=== PATIENT | female | born 1995 | race American Indian/Alaskan Native ===

== ENCOUNTER 2017-08-29 21:29 | Outpatient (CLI) | payer MEDICAID ==
[2017-08-29 21:46] VITALS: BP 126/67
[2017-08-29] MEDS ORDERED: LACTATED RINGERS 1,000 ML IV ONE ×2 (21:48→22:50)
[2017-08-29 22:16] LABS: Bacteria,Urine 1+ /HPF (Negative); Bilirubin,Urine NEG (Negative); Blood,Urine NEG (Negative); Ketones,Urine NEG (Negative); Leukocyte Esterase,Urine MOD (Negative); Mucus,Urine FEW /HPF; Nitrite,Urine NEG (Negative); Protein,Urine <15 mg/dL mg/dL (Negative); Urobilinogen,Urine < 2.0 mg/dL (<2.0)
[2017-08-29] MEDS ORDERED: BRETHINE SUB-Q ONE (22:38)
== END 2017-08-30 00:05 | disposition home or self-care (01) ==
LOC: TRG 21:29
PROVIDERS: ATTEND Obstetrics & Gynecology
DX: O47.03 False labor before 37 completed weeks of gestation, third trimester (principal); Z3A.33 33 weeks gestation of pregnancy
CPT/HCPCS: 36415; 81001; 82731; 96360; 96372; J3105; J7120

== ENCOUNTER 2017-09-27 00:41 | Outpatient (CLI) | payer MEDICAID ==
[2017-09-27 01:47] VITALS: BP 124/71
[2017-09-27] MEDS ORDERED: VISTARIL PO PRN (02:35)
[2017-09-27] MEDS ORDERED: VISTARIL PO ONE (02:35)
[2017-09-27] MEDS ORDERED: NARCAN 0.4 MG/1 ML IV PRN (02:47)
[2017-09-27] MEDS ORDERED: ZOFRAN IV PRN (02:47)
[2017-09-27] MEDS ORDERED: XYLOCAINE 2% INFILTRATI ONE (02:47)
[2017-09-27] MEDS ORDERED: SUBLIMAZE IV PRN (02:47)
[2017-09-27] MEDS ORDERED: BRETHINE SUB-Q PRN (02:47)
[2017-09-27] MEDS ORDERED: MINERAL OIL PO PRN (02:47)
[2017-09-27] MEDS ORDERED: STADOL IV PRN (02:47)
[2017-09-27] MEDS ORDERED: PHENERGAN PR PRN (02:47)
[2017-09-27] MEDS ORDERED: ePHEDrine SULFATE IV PRN (02:47)
[2017-09-27] MEDS ORDERED: BRETHINE IVP PRN (02:47)
--- NOTE | 2017-09-27 02:52 | Ultrasound Report ---
FINAL REPORT PROCEDURE: US OB FOLLOW UP TECHNIQUE: Real-time sonography performed for focused follow-up or re-evaluation of each size/growth parameters and amniotic fluid or re-evaluation of suspected or confirmed abnormality on prior imaging. CPT 05271 HISTORY: PT FELL ON 09/25/17 COMPARISON: No prior studies are available for comparison. FINDINGS: MATERNAL Uterus: Within normal limits . Cervix length: 2.2 cm. Internal Os: Closed . IUP: Single living intrauterine . Position: Cephalic. Placental position: Anterior, without previa . Amniotic fluid volume: Normal . Heart rate and rhythm: 147 BPM, Regular . anatomic survey: Not performed. MEASUREMENTS BPD: 8.46 centimeters correspond at 34 weeks and 1 day. HC: 32.29 centimeters correspond at 36 weeks and 3 days. AC: 29.42 centimeters correspond at 33 weeks and 3 days. FL: 7.19 centimeters correspond at 36 weeks and 6 days. Mean Gestational Age (composite criteria): 35 weeks and 2 days. Ratio biometry: Normal . Estimated Weight: 2512 grams. Interval growth: Appropriate . Estimated Due Date (earliest scan): 10/30/2017. IMPRESSION: 1. Single living intrauterine gestation at approximately 35 weeks and 2 days 2. EDC by US 10/30/2017.
--- NOTE | 2017-09-27 02:53 | Ultrasound Report ---
FINAL REPORT PROCEDURE: US OB FOLLOW UP TECHNIQUE: Real-time sonography performed for focused follow-up or re-evaluation of each size/growth parameters and amniotic fluid or re-evaluation of suspected or confirmed abnormality on prior imaging. CPT 58302 HISTORY: PT FELL ON 09/25/17 COMPARISON: No prior studies are available for comparison. FINDINGS: MATERNAL Uterus: Within normal limits . Cervix length: 2.2 cm. Internal Os: Closed . IUP: Single living intrauterine . Position: Cephalic. Placental position: Anterior, without previa . Amniotic fluid volume: Normal . Heart rate and rhythm: 147 BPM, Regular . anatomic survey: Not performed. MEASUREMENTS BPD: 8.46 centimeters correspond at 34 weeks and 1 day. HC: 32.29 centimeters correspond at 36 weeks and 3 days. AC: 29.42 centimeters correspond at 33 weeks and 3 days. FL: 7.19 centimeters correspond at 36 weeks and 6 days. Mean Gestational Age (composite criteria): 35 weeks and 2 days. Ratio biometry: Normal . Estimated Weight: 2512 grams. Interval growth: Appropriate . Estimated Due Date (earliest scan): 10/30/2017. biophysical profile: breathing movements: 2. movements: 2. posterior and tone: 2. Qualitative amniotic fluid volume: 2. Total score: 8/8. IMPRESSION: 1. Single living intrauterine gestation at approximately 35 weeks and 2 days 2. EDC by US 10/30/2017. 3. Normal biophysical profile.
[2017-09-27] MEDS ORDERED: PITOCin/NS 30 UNIT/500ML 30 UNITS/500 ML BAG IV SCH ×2 (03:00)
[2017-09-27] MEDS ORDERED: PITOCin/NS 20 UNIT/1000ML DRIP 20 UNITS/1,000 ML BAG IV SCH (03:00)
[2017-09-27] MEDS ORDERED: LACTATED RINGERS 1,000 ML IV SCH (03:00)
== END 2017-09-27 03:00 | disposition home or self-care (01) ==
LOC: TRG 00:41
PROVIDERS: ATTEND Obstetrics & Gynecology
DX: O47.03 False labor before 37 completed weeks of gestation, third trimester (principal); Z3A.35 35 weeks gestation of pregnancy
CPT/HCPCS: 59025; 76816; 76819; Q0177

== ENCOUNTER 2017-09-27 07:08 | Inpatient (IN) | payer MEDICAID ==
--- NOTE | 2017-09-27 07:36 | Procedure Note ---
OB Delivery Note - Delivery Date of Delivery: 09/27/17 Surgeon: PRATEEK MINER Estimated blood loss: <100cc - Vaginal Delivery presentation: vertex Delivery position: OA Intrapartum events: precipitous labor- <3hr Delivery induction: none Delivery monitor: external FHT, external uterine Route of delivery: Delivery placenta: spontaneous Delivery cord: 3 umbilical vessels Episiotomy: none Delivery laceration: none Anesthesia: none Delivery comments: Called to delivery for fully dilated patient about to deliver, provider not immediately available. Performed vaginal delivery over intact perineum, mother and fetus in stable condition. - Infant A at 1 minute: 8 at 5 minutes: 9 Infant Gender: Male (time of delivery is 7:21 AM, infant weight 5 lbs. 12 oz. or 2610 g)
[2017-09-27] MEDS ORDERED: LACTATED RINGERS 1,000 ML ONE (07:52)
[2017-09-27] MEDS ORDERED: PITOCin/NS 20 UNIT/1000ML DRIP 20,000 MILLIUNITS/1,000 ML BAG IV ONE (08:18)
--- NOTE | 2017-09-27 08:22 | History and Physical Report ---
History of Present Illness Date of examination: 09/27/17 Date of admission: 09/27/17 07:08 History of present illness: 22 yo EDC 10/13/17 @ 37.5 weeks gestation presented to L&D @ complete. viable male infant. records not available at time of delivery will request. Patient voiced received at [facility], [employer]. Last visit in office was yesterday. Records received and patient was a transfer into care at 31 weeks gestation. History of asthma and sickle cell trait with FOB being negative per patient. Treated for BV and Trich last week. She is GBS negative. Past History Past Medical History: asthma Past Surgical History: no surgical history [employer] History: trichomonas Family/Genetic History: none Social history: no significant social history - Obstetrical History Expected Date of Delivery: 10/13/17 Actual Gestation: 37 Week(s) 5 Day(s) : 2 Para: 1 Hx # Term Pregnancies: 1 Number of Living Children: 1 Medications and Allergies Allergies Allergy/AdvReac Type Severity Reaction Status Date / Time shrimp Allergy Severe Anaphylaxis Verified 08/29/17 21:46 Review of Systems All systems: negative - Vital Signs Vital signs: Vital Signs Temp Pulse Resp BP Pulse Ox 97.2 F L 80 20 123/74 100 09/27/17 07:10 09/27/17 07:10 09/27/17 07:10 09/27/17 07:10 09/27/17 07:10 Temp Pulse Resp BP Pulse Ox 97.2 F L 75 20 118/57 97 09/27/17 07:10 09/27/17 08:10 09/27/17 07:10 09/27/17 08:10 09/27/17 07:49 - Physical Exam Abdomen: Positive: other (ff@ U, ML) Vulva: both: normal Vagina: Positive: other (small lochia intacyt) Results All other labs normal. Assessment and Plan A: IUP at 37.4 weeks Precipitous viable male Routine PP orders
[2017-09-27] MEDS ORDERED: TYLENOL PO PRN (08:26)
[2017-09-27] MEDS ORDERED: DULCOLAX PR PRN (08:26)
[2017-09-27] MEDS ORDERED: BENADRYL PO PRN (08:26)
[2017-09-27] MEDS ORDERED: PHENERGAN PO PRN (08:26)
[2017-09-27] MEDS ORDERED: TUCKS PAD TP PRN (08:26)
[2017-09-27 08:35] LABS: Hematocrit 37.7 % (30.3-42.9); Hemoglobin 13.1 gm/dl (10.1-14.3); Mean Corpuscular HGB Conc 35 % (30-34); Mean Corpuscular Hemoglobin 31 pg (28-32); Mean Corpuscular Volume 89 fl (79-97); Platelet Count 184 K/mm3 (140-440); Red Blood Count 4.25 M/mm3 (3.65-5.03); Red Cell Distribution Width 12.8 % (13.2-15.2); White Blood Count 12.2 K/mm3 (4.5-11.0)
[2017-09-27] MEDS ORDERED: SODIUM CHLORIDE FLUSH SYRINGE 10 ML IV NR (09:00)
[2017-09-27] MEDS ORDERED: PITOCin/NS 20 UNIT/1000ML DRIP 20 UNITS/1,000 ML BAG IV SCH (09:00)
[2017-09-27] MEDS ORDERED: LACTATED RINGERS 1,000 ML IV SCH (09:00)
[2017-09-27] MEDS: MOTRIN PO SCH ×3 (10:15→22:27)
[2017-09-27] MEDS: NORCO 5/325 PO PRN ×2 (10:16→22:23)
[2017-09-27] MEDS: PRENATAL VITAMIN PO SCH (11:43)
[2017-09-27 21:01] LABS: Hematocrit 31.5 % (30.3-42.9); Hemoglobin 10.8 gm/dl (10.1-14.3)
[2017-09-28] MEDS: MOTRIN PO SCH ×2 (05:23→18:05)
[2017-09-28] MEDS ORDERED: BOOSTRIX IM ONE (06:00)
[2017-09-28] MEDS: PRENATAL VITAMIN PO SCH (08:41)
--- NOTE | 2017-09-28 15:45 | Progress Note ---
Assessment and Plan A: PPD#1 s/p at term P: Routine care. Anticipate discharge tomorrow. Subjective - Subjective Date of service: 09/28/17 Principal diagnosis: s/p at term Interval history: No overnight events Patient reports: appetite normal, voiding normally, pain well controlled, ambulating normally [place]: doing well Objective - Vital Signs Latest vital signs: Vital Signs Temp Pulse Resp BP BP Pulse Ox 09/28/17 09:35 97.8 F 79 20 96/64 09/28/17 00:30 98.6 F 77 16 114/71 09/27/17 22:27 18 09/27/17 22:23 18 09/27/17 20:00 98.6 F 71 16 114/78 09/27/17 16:43 99.1 F 90 22 106/65 98 - Exam Breasts: Present: deferred Cardiovascular: Present: Regular rate Lungs: Present: Clear to auscultation Abdomen: Present: soft Uterus: Present: fundal height below umbilicus Extremities: Present: normal
--- NOTE | 2017-09-28 15:46 | Discharge Summary ---
Providers - Providers Date of Admission: 09/27/17 07:08 Date of discharge: 09/29/17 Attending physician: AVA TORREZ MD Primary care physician: AVA TORREZ MD Hospitalization Reason for admission: active labor Delivery: Procedure details: Please see delivery note. Episiotomy: none Laceration: none Other procedures: none complications: none Discharge diagnosis: IUP at term delivered [place] baby: male Hospital course: Pt tolerated well. Her course was uncomplicated. She met discharge criteria on PPD#2. She will follow up in the office in 4 weeks. Condition at discharge: Stable Disposition: DC-01 TO HOME OR SELFCARE - Discharge Diagnoses (1) Term of male Status: Acute Plan - Discharge Medications Prescriptions: HYDROcodone/APAP 5-325 [[place] 5/325] 1 each PO Q6HR PRN #20 tablet PRN Reason: Pain Ibuprofen [Motrin] 600 mg PO Q6H PRN #30 tablet PRN Reason: Pain - Provider Discharge Summary Activity: routine, no sex for 6 weeks, no heavy lifting 4 weeks, no strenuous exercise Diet: routine Instructions: routine Additional instructions: [] Smoking cessation referral if applicable(refer to patient education folder for contact #) [] Refer to [facility] Call your doctor immediately for: * Fever > 100.5 * Heavy vaginal bleeding ( >1 pad per hour) * Severe persistent headache * Shortness of breath * Reddened, hot, painful area to leg or breast * Drainage or odor from incision. * Keep incision clean and dry at all times and follow doctor's instructions regarding bathing/showering Please schedule your son's circumcision before he is one month old. - Follow up plan Follow up: YESENIA ZHENG CNM [Advanced Practice Nurse] - 10/25/17 (Please schedule appt for your exam )
[2017-09-29] MEDS ORDERED: MOTRIN PO SCH
[2017-09-29 15:08] VITALS: BP 128/68
== END 2017-09-29 12:45 | disposition home or self-care (01) | DRG 775 ==
LOC: LD 07:08 → OB 09:42
PROVIDERS: ADMIT Obstetrics & Gynecology; ATTEND Obstetrics & Gynecology
PROC: 10E0XZZ Delivery of Products of Conception, External Approach (ICD-10-PCS; principal; 2017-09-27)
DX: O62.3 Precipitate labor (principal); Z3A.37 37 weeks gestation of pregnancy; Z37.0 Single live birth; O99.52 Diseases of the respiratory system complicating childbirth; J45.909 Unspecified asthma, uncomplicated
CPT/HCPCS: 36415; 85014; 85018; 85027; 86850; 86900; 86901; 90471; 99211; G0463; J2590; J7120

== ENCOUNTER 2019-02-08 19:18 | Emergency (ER) | payer MEDICAID, OTHER ==
[2019-02-08 19:49] VITALS: BP 121/78
--- NOTE | 2019-02-08 20:10 | Emergency Department Report ---
Blank Doc - Documentation Documentation: 23 y/o female headache started today with nausea and vomiting. Hx/o Asthma.
[2019-02-08 21:16] LABS: HCG Qualitative,Urine Negative (Negative)
[2019-02-08 21:21] LABS: Bilirubin,Urine NEG (Negative); Blood,Urine NEG (Negative); Color,Urine Yellow (Yellow); Mucus,Urine FEW /HPF; Protein,Urine <15 mg/dL mg/dL (Negative); RBC,Urine < 1.0 /HPF (0.0-6.0); Urobilinogen,Urine < 2.0 mg/dL (<2.0)
--- NOTE | 2019-02-08 22:41 | Emergency Department Report ---
ED Headache HPI - General Chief Complaint: Headache Stated Complaint: HEADACHE NV Time Seen by Provider: 02/08/19 22:25 Source: patient Exam Limitations: no limitations - History of Present Illness Initial Comments: Patient is a A1 and 3 older [place] female who presents to the ED with a complaint of acute onset persistent severe headache with 1 time episode of nausea and vomiting 8 hours ago. Patient states that her last menstrual cycle was 01/17/2019. Patient states that she came to the ED for treatment for her headache and nausea and vomiting and to find out if she may be . Patient denies dizziness, vision changes, neck pain, chest pain, shortness of breath, nasal and sinus congestion, traumatic injury or fever, and chills. Timing/Duration: 4-6 hours, decreasing, waxing and waning, other (resolved) Quality: moderate, achy Head Injury Location: occipital Recent Head Trauma: no recent headache/trauma, occasional headaches Modifying Factors: improves with: other Associated Symptoms: denies symptoms (none), fatigue, fever/chills, flushing, numbness in legs/feet, seizures, sinus infection, stiff neck, vision changes Allergies/Adverse Reactions: Allergies shrimp Allergy (Severe, Verified 08/29/17 21:46) Anaphylaxis Home Medications: Ambulatory Orders HYDROcodone/APAP 5-325 [[place] 5/325] 1 each PO Q6HR PRN #20 tablet 09/28/17 Ibuprofen [Motrin] 600 mg PO Q6H PRN #30 tablet 09/28/17 Ibuprofen [Motrin] 400 mg PO Q8H PRN #20 tablet 02/08/19 Ondansetron [Zofran Odt] 4 mg PO Q8HR #12 tab.rapdis 02/08/19 ED Review of Systems ROS: Stated complaint: HEADACHE NV Other details as noted in HPI Comment: All other systems reviewed and negative Constitutional: no symptoms reported, see HPI. denies: chills, fever, malaise, weakness Eyes: as per HPI. denies: eye pain, vision change ENT: as per HPI Respiratory: no symptoms reported, see HPI. denies: cough, shortness of breath Cardiovascular: as per HPI. denies: chest pain, palpitations, syncope Endocrine: no symptoms reported, see HPI. denies: excessive sweating, intolerance to cold Gastrointestinal: as per HPI, nausea, vomiting. denies: abdominal pain Genitourinary: as per HPI. denies: urgency, dysuria, frequency Musculoskeletal: as per HPI. denies: back pain, arthralgia, myalgia Skin: as per HPI. denies: rash, lesions, change in color, change in hair/nails Neurological: as per HPI, headache. denies: numbness, paresthesias, abnormal gait, vertigo Psychiatric: as per HPI Hematological/Lymphatic: as per HPI ED Past Medical Hx - Past Medical History Previous Medical History?: Yes Hx Hypertension: No Hx Congestive Heart Failure: No Hx Diabetes: No Hx Deep Vein Thrombosis: No Hx Renal Disease: No Hx Sickle Cell Disease: Yes (trait) Hx Seizures: No Hx Asthma: Yes Hx COPD: No Hx HIV: No - Surgical History Past Surgical History?: No - Social History Smoking Status: Current Every Day Smoker Substance Use Type: None - Medications Home Medications: Home Medications Medication Instructions Recorded Confirmed Last Taken Type HYDROcodone/APAP 5-325 [[place] 1 each PO Q6HR PRN #20 tablet 09/28/17 Unknown Rx 5/325] Ibuprofen [Motrin] 600 mg PO Q6H PRN #30 tablet 09/28/17 Unknown Rx Ibuprofen [Motrin] 400 mg PO Q8H PRN #20 tablet 02/08/19 Unknown Rx Ondansetron [Zofran Odt] 4 mg PO Q8HR #12 tab.rapdis 02/08/19 Unknown Rx ED Physical Exam - General Limitations: No Limitations General appearance: alert, in no apparent distress - Head Head exam: Present: atraumatic, normocephalic, normal inspection - Eye Eye exam: Present: normal appearance, PERRL, EOMI Pupils: Present: normal accommodation - ENT ENT exam: Present: normal exam, normal orophraynx, mucous membranes moist, TM's normal bilaterally, normal external ear exam - Neck Neck exam: Present: normal inspection, full ROM. Absent: tenderness - Respiratory Respiratory exam: Present: normal lung sounds bilaterally. Absent: respiratory distress, wheezes, chest wall tenderness, accessory muscle use - Cardiovascular Cardiovascular Exam: Present: regular rate, normal rhythm, normal heart sounds - GI/Abdominal GI/Abdominal exam: Present: soft, normal bowel sounds. Absent: tenderness, rebound - Rectal Rectal exam: Present: deferred - Extremities Exam Extremities exam: Present: normal inspection, full ROM - Back Exam Back exam: Present: normal inspection, full ROM. Absent: CVA tenderness (R), CVA tenderness (L), muscle spasm - Neurological Exam Neurological exam: Present: alert, oriented X3, CN II-XII intact, normal gait, reflexes normal - Psychiatric Psychiatric exam: Present: normal affect - Skin Skin exam: Present: warm, dry, intact, normal color ED Course Vital Signs 02/08/19 19:47 Temperature 98.1 F Pulse Rate 71 Respiratory 16 Rate Blood Pressure 121/78 O2 Sat by Pulse 99 Oximetry ED Medical Decision Making - Medical Decision Making Patient had presented to the ED with acute onset headache and one time episode of nausea and vomiting in the last 8 hours. On presentation to the ED, patient is hemodynamically stable with normal vital signs. On reevaluation, patient's headache has resolved as well as nausea and vomiting prior to arrival in the ED. Patient more concerned about whether she is or not. Urinalysis was ordered and is was unremarkable with negative . Patient was discharged home accompanied ibuprofen 400 mg by mouth when necessary and Zofran 4 mg ODT sublingual tablet every 8 hours when necessary. Patient advised to follow-up with her primary care physician in 2-3 days for reevaluation. Patient advised to return to the ED immediately if symptoms get worse. - Differential Diagnosis Tension type headache, Cluster headache, Migraine headache Critical care attestation.: If time is entered above; I have spent that time in minutes in the direct care of this critically ill patient, excluding procedure time. ED Disposition Clinical Impression: Nausea and vomiting in adult Tension-type headache Qualifiers: Headache chronicity pattern: unspecified pattern Intractability: not intractable Qualified Code(s): G44.209 - Tension-type headache, unspecified, not intractable Disposition: DC-01 TO HOME OR SELFCARE Is pt being admited?: No Does the pt Need Aspirin: No Condition: Stable Instructions: Acute Headache (ED), Acute Nausea and Vomiting (ED) Additional Instructions: Take medications with food, drink plenty of fluids and follow up with your primary care physician in 2-3 days for reevaluation. Return to the ED immediately if symptoms get worse. Prescriptions: Ibuprofen [Motrin] 400 mg PO Q8H PRN #20 tablet PRN Reason: Pain , Severe (7-10) Ondansetron [Zofran Odt] 4 mg PO Q8HR #12 tab.rapdis Referrals: BRAULIO ANAND MD [Primary Care Provider] - 3-5 Days Time of Disposition: 22:43 Print Language: SOUTH AFR[place]
== END 2019-02-08 22:45 | disposition home or self-care (01) ==
LOC: ED 19:18
DX: G44.209 Tension-type headache, unspecified, not intractable (principal); R11.2 Nausea with vomiting, unspecified; F17.200 Nicotine dependence, unspecified, uncomplicated
CPT/HCPCS: 81001; 81025